=== PATIENT | female | born 1980 | race Caucasian/White ===

== ENCOUNTER 2021-07-24 06:11 | Day surgery (SDC) | payer SELFPAY ==
[2021-07-21 14:43] VITALS: BMI 34.3
[2021-07-24] MEDS ORDERED: LIDOCAINE HCL 1%, 10 MG/ML (20ML VIAL) ONE ×2 (07:14→07:34)
[2021-07-24] MEDS ORDERED: EPINEPHrine/PF 1 MG/1 ML (1:1,000) AMPULE ONE ×2 (07:14→07:33)
[2021-07-24] MEDS ORDERED: ROCURONIUM BROMIDE 50 MG/5 ML SYRINGE ONE (07:56)
[2021-07-24] MEDS ORDERED: SUCCINYLCHOLINE CHLORIDE 200 MG/10 ML SYRINGE ONE (07:56)
[2021-07-24] MEDS ORDERED: MIDAZOLAM HCL 2 MG/2 ML SINGLE DOSE VIAL ONE (07:56)
[2021-07-24] MEDS ORDERED: PROPOFOL 20 ML ONE ×7 (07:56→10:56)
[2021-07-24] MEDS ORDERED: ACETAMINOPHEN INJECTION 100 ML IVPB ONE (08:33)
[2021-07-24] MEDS ORDERED: SCOPOLAMINE HYDROBROMIDE 1 PATCH PATCH.TD72 ONE (08:33)
[2021-07-24] MEDS ORDERED: ONDANSETRON 4 MG/2 ML VIAL ONE (09:03)
[2021-07-24] MEDS ORDERED: LIDOCAINE HCL/PF 2% SDV 5ML VIAL ONE (09:03)
[2021-07-24] MEDS ORDERED: DEXAMETHASONE SOD PHOSPHATE 4 MG/1 ML VIAL ONE (09:15)
[2021-07-24] MEDS ORDERED: ceFAZolin SODIUM 1 GM VIAL ONE (09:18)
[2021-07-24] MEDS ORDERED: BACITRACIN 15 GM TUBE TOPICAL OINTMENT ONE (10:14)
[2021-07-24] MEDS ORDERED: ONDANSETRON 4 MG/2 ML VIAL IVPUSH PRN (12:10)
[2021-07-24] MEDS ORDERED: oxyCODONE HCL 5 MG TABLET PO PRN (12:10)
[2021-07-24] MEDS ORDERED: LACTATED RINGERS SOLUTION 1,000 ML IV SCH (12:15)
[2021-07-24 12:43] VITALS: TEMP 98.3
[2021-07-24 12:59] VITALS: BP 143/84; PULSE 96
[2021-07-24] MEDS ORDERED: ACETAMINOPHEN 500 MG TABLET (FP) PO SCH (14:30)
== END 2021-07-24 13:34 | disposition home or self-care (01) ==
LOC: FASU 06:11
PROVIDERS: ATTEND Surgery
CPT/HCPCS: 84703; 94760; J0131